=== PATIENT | male | born 1995 | race Caucasian/White ===

== ENCOUNTER 2023-08-24 21:43 | Emergency (ER) | payer OTHER ==
[~2023-08-24] VITALS: Ht 188 cm; Wt 95.5 kg
[2023-08-24 21:48] VITALS: BP 129/71; PULSE 76; RESP 16; TEMP 98.6
== END 2023-08-25 00:45 | disposition home or self-care (01) ==
LOC: EMS 21:44
DX: F41.9 Anxiety disorder, unspecified (principal)
CPT/HCPCS: 99281; Z7502